=== PATIENT | female | born 1995 | race Caucasian/White ===

== ENCOUNTER 2021-08-12 02:05 | Emergency (ER) | payer SELFPAY ==
[2021-08-12] MEDS ORDERED: Ondansetron 4 MG/2 ML SDV IVPUSH ONE (02:22)
[2021-08-12] MEDS ORDERED: Dextrose 5%-Lactated Ringers 1,000 ML IV SCH (02:30)
[2021-08-12 03:21] LABS: CORONAVIRUS COVID-19 NAA NEGATIVE (NEGATIVE); INFLUENZA A NAA NEGATIVE (NEGATIVE); INFLUENZA B NAA NEGATIVE (NEGATIVE)
--- NOTE | 2021-08-12 03:38 | CT ---
INDICATION: Severe headache onset 2 hours ago. TECHNIQUE: Multiple axial images were obtained through the brain without contrast. Sagittal and coronal re-formatted images were obtained. COMPARISON: None. FINDINGS: The ventricles and sulci are within normal limits. There is no mass effect or midline shift. There is no intracranial hemorrhage. The nunez-white matter differentiation is unremarkable. There is no fracture seen on bone windows. IMPRESSION: No acute intracranial abnormality. Please note that all CT scans at this facility use dose modulation, iterative reconstruction, and/or weight-based dosing when appropriate to reduce radiation dose to as low as reasonably achievable. Dictated by Rickey Shah MD @ 08/12/2021 3:36:35 AM (Electronically Signed)
[2021-08-12] MEDS ORDERED: Prochlorperazine 10 MG/2 ML SDV IVPUSH ONE (03:41)
[2021-08-12] MEDS ORDERED: Ketorolac 15 MG/ML SDV IVPUSH ONE (03:41)
[2021-08-12] MEDS ORDERED: diphenhydrAMINE 50 MG/ML SDV IVPUSH ONE (03:42)
[2021-08-12] MEDS ORDERED: Dexamethasone 10 MG/ML SDV IVPUSH ONE (04:42)
--- NOTE | 2021-08-12 04:42 | EDM.PDOC ---
ED HPI GENERAL MEDICAL PROBLEM - General Chief Complaint: Headache Stated Complaint: MIGRAINE; VOMITING Time Seen by Provider: 08/12/21 02:17 - History of Present Illness INITIAL COMMENTS - FREE TEXT/NARRATIVE: CHIEF COMPLAINT(S): Headache HISTORY OF PRESENT ILLNESS: This is a 26-year-old with an without any significant past medical history who comes to the emergency department with a chief complaint of headache. The patient states that approximately 2 hours ago she woke up with sudden onset severe headache. She states that she has had one episode of vomiting. She states that the pain is 10 out of 10 and located throu ghout her head. She denies any numbness, tingling, or weakness but states that she does have some photophobia. She denies any phonophobia. She denies any head injury or loss of consciousness. She has not tried anything for pain therefore there are no relieving factors. There was no exacerbating factors. Patient states this is never happened before and denies any history of migraine. She denies any cough, runny nose, congestion, fever, neck pain, neck stiffness. She denies any other symptoms REVIEW OF SYSTEMS: Constitutional: Denies fever, chills. Eyes: Denies eye pain Ears, Nose, Mouth, & Throat: Denies earache Cardiovascular: Denies chest pain Respiratory: Denies shortness of breath Gastrointestinal: Denies Nausea, vomiting, diarrhea, hematochezia. Genitourinary: Denies hematuria Skin:Denies a rash MSK: Denies joint pain Neurological: Positive for headache. Denies blurred vision, double vision, numbness, tingling, weakness Psychiatric: Denies depression PAST MEDICAL HISTORY: As per history of present illness and as reviewed below otherwise noncontributory. SURGICAL HISTORY: As per history of present illness and as reviewed below otherwise noncontributory. SOCIAL HISTORY: As per history of present illness and as reviewed below otherwise noncontributory. FAMILY HISTORY: As per history of present illness and as reviewed below otherwise noncontributory. EXAMINATION OF ORGAN SYSTEMS/BODY AREAS: Constitutional: Blood pressure is 149/103, heart rate 80, respiratory rate 18 with an oxygen saturation 97% on room air. Temperature 35.8 General: Young woman who otherwise does not appear to be in any acute distress Psychiatric: Appropriate mood and affect. Eyes: No scleral icterus or conjunctival erythema pupils were 3 mm and reactive bilaterally. Extraocular movements intact. No vertical or horizontal nystagmus. ENMT: Moist mucous membranes. No pharyngeal erythema Cardiovascular: Regular, rate, and rhythm. No gallops, murmurs, or rubs. Bilateral upper extremity pulses symmetric and intact. No peripheral edema. No JVD. Respiratory: Lungs clear to auscultation bilaterally. No wheezes, rales, or rhonchi. Gastrointestinal: Soft, non-tender, non-distended. Normoactive bowel sounds Genitourinary: No suprapubic tenderness Musculoskeletal: Normal range of motion. Skin: No lesions or abrasions. Neurological: AOx4. CN grossly intact. Strength 5/5 in bilateral upper and lower extremity. Sensation is intact bilaterally in upper and lower extremity. Gait appears normal. MEDICAL DECISION MAKING AND COURSE IN THE ED WITH INTERPRETATION/REVIEW OF DIAGNOSTIC STUDIES: This is a 26-year-old woman without any significant past medical history who comes to the emergency department with the worst headache of her life who is experiencing vomiting who is mildly hypertensive. At this time we will provide the patient with Zofran for nausea relief and provide the patient with 1 L of D5 LR. Will obtain a CT head without contrast as the patient's symptoms started approximately 2 hours prior to arrival. We will evaluate for subarachnoid hemorrhage. If there is no hemorrhage then we will provide the patient with pain relief and reevaluate. I do not believe any other labs other than test are indicated. Obtain a Covid swab. DDx: Migraine headache, simple headache, subarachnoid hemorrhage The radiological images were viewed by myself along with reading the report from the radiologist. CT head without contrast does not reveal any acute intracranial abnormality. After imaging I did provide the patient with Toradol, Compazine and Benadryl. At the time of my reevaluation the patient's nausea had significantly improved. We will reevaluate. After period of observation the patient no longer had any pain and was ready to go home. I did discuss strict return precautions with the patient. She was amenable to discharge and had no further questions DISPOSITION: The patient was discharged home in stable condition. The patient will follow up with primary care physician in 3 to 5 days CONDITION: Fair PROCEDURES: None FINAL IMPRESSION(S)/DIAGNOSES: 1. Acute migraine headache Richard Smiley M.D. headache Pain Score (Numeric/FACES): 10 - Related Data Allergies Allergy/AdvReac Type Severity Reaction Status Date / Time No Known Allergies Allergy Verified 08/12/21 02:14 Home Meds: Home Meds . 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: None Hematologic History: Reports: None Immunologic History: Reports: None Oncologic (Cancer) History: Reports: None Dermatologic History: Reports: None - Infectious Disease History Infectious Disease History: Reports: None - Past Surgical History Head Surgeries/Procedures: Reports: None Musculoskeletal Surgical History: Reports: None Social & Family History - Caffeine Use Caffeine Use: Reports: None - Recreational Drug Use Recreational Drug Use: No ED ROS GENERAL - Review of Systems Review Of Systems: See Below ED EXAM, GENERAL - Physical Exam Exam: See Below Course - Vital Signs Last Recorded V/S: Last Vital Signs Temp 35.8 C L 08/12/21 02:14 Pulse 81 08/12/21 05:28 Resp 15 08/12/21 05:28 BP 128/78 08/12/21 05:28 Pulse Ox 100 08/12/21 05:28 - Orders/Labs/Meds Labs: Laboratory Tests 08/12/21 08/12/21 Range/Units 02:20 02:37 HCG, Qual NEGATIVE (NEG) Influenza Type A RNA NEGATIVE (NEGATIVE) Influenza Type B RNA NEGATIVE (NEGATIVE) SARS-CoV-2 RNA (LETTY) NEGATIVE (NEGATIVE) Meds: Medications Discontinued Medications Generic Name Dose Route Start Last Admin Trade Name Freq PRN Reason Stop Dose Admin Dexamethasone 10 mg 08/12/21 04:42 08/12/21 05:00 Dexamethasone 10 Mg/Ml Sdv IVPUSH 08/12/21 04:43 10 mg ONETIME ONE Administration Diphenhydramine HCl 50 mg 08/12/21 03:42 08/12/21 03:55 Diphenhydramine 50 Mg/Ml Sdv IVPUSH 08/12/21 03:43 50 mg ONETIME ONE Administration Dextrose/Lactated Ringer's 1,000 mls @ 999 mls/hr 08/12/21 02:30 08/12/21 02: 27 Dextrose 5%-Lactated Ringers IV 999 mls/hr ASDIRECTED SUGEY Administration Ketorolac Tromethamine 15 mg 08/12/21 03:41 08/12/21 03:53 Ketorolac 15 Mg/Ml Sdv IVPUSH 08/12/21 03:42 15 mg ONETIME ONE Administration Ondansetron HCl 4 mg 08/12/21 02:22 08/12/21 02:27 Ondansetron 4 Mg/2 Ml Sdv IVPUSH 08/12/21 02:23 4 mg ONETIME ONE Administration Prochlorperazine Edisylate 5 mg 08/12/21 03:41 08/12/21 03:54 Prochlorperazine 10 Mg/2 Ml Sdv IVPUSH 08/12/21 03:42 5 mg ONETIME ONE Administration Departure - Departure Time of Disposition: 05:45 Disposition: Home, Self-Care 01 Condition: Fair Clinical Impression: Migraine - Discharge Information *PRESCRIPTION DRUG MONITORING PROGRAM REVIEWED*: No *COPY OF PRESCRIPTION DRUG MONITORING REPORT IN PATIENT KELLIE: No Instructions: Migraine Headache, [id number] Referrals: PCP,Not In Area [Primary Care Provider] - Forms: ED Department Discharge Additional Instructions: You were evaluated today on an emergent basis. At this time your imaging did not reveal any bleeding in your head or any abnormality. We did treat you with pain medications here and the emergency department you were able to tolerate fluids. At this time I do believe you are experiencing a migraine headache. I recommend you use Tylenol and Motrin for pain relief. You are welcome to return to the emergency department if you have any worsening of your symptoms such as worsening headache, vomiting, trouble walking, speaking or swallowing. Otherwise please follow-up with primary care physician in 3 to 5 days for reevaluation. [facility] - [facility] [address] [place] [id number] [facility] [address] [place] [address] The patient is informed of any results of their evaluation and diagnostic workup and all questions are answered. They are given discharge instructions and return precautions. The patient is stable for discharge. The patient states they understand and agree with the plan and that they will return if their symptoms get worse or if they have any new concerns. The following information is given to patients seen in the emergency department who are being discharged to home. This information is to outline your options for follow-up care. We provide all patients seen in our emergency department with a follow-up referral. The need for follow-up, as well as the timing and circumstances, are variable depending upon the specifics of your emergency department visit. If you don't have a primary care physician on staff, we will provide you with a referral. We always advise you to contact your personal physician following an emergency department visit to inform them of the circumstance of the visit and for follow-up with them and/or the need for any referrals to a consulting specialist. The emergency department will also refer you to a specialist when appropriate. This referral assures that you have the opportunity for follow-up care with a specialist. All of these measure are taken in an effort to provide you with optimal care, which includes your follow-up. Under all circumstances we always encourage you to contact your private physician who remains a resource for coordinating your care. When calling for follow-up care, please make the office aware that this follow-up is from your recent emergency room visit. If for any reason you are refused follow-up, please contact the [facility] Emergency Department at and asked to speak to the emergency department charge nurse. Sepsis Event Note (ED) - Evaluation Sepsis Screening Result: No Definite Risk - Focused Exam Vital Signs: Vital Signs Temp Pulse Resp BP Pulse Ox 08/12/21 05:28 81 15 128/78 100 08/12/21 04:28 83 16 122/72 98 08/12/21 03:55 80 18 128/74 97 08/12/21 02:14 35.8 C L 80 18 149/103 H 97
== END 2021-08-12 05:40 | disposition home or self-care (01) ==
LOC: MW.ED 02:05
DX: G43.909 Migraine, unspecified, not intractable, without status migrainosus (principal); Z20.822 Contact with and (suspected) exposure to COVID-19
CPT/HCPCS: 0240U; 36415; 70450; 84703; 96374; 96375; 99284; J0780; J1100; J1200; J1885; J2405; J7121